=== PATIENT | female | born 1960 | race Caucasian/White ===

== ENCOUNTER 2020-06-19 14:40 | Emergency (ER) | payer SELFPAY ==
[~2020-06-19] VITALS: Ht 141 cm; Wt 68.0 kg
[2020-06-19 14:46] VITALS: BP 119/62
--- NOTE | 2020-06-19 14:50 | NUR ---
Dr. Phipps notified of pt's symptoms
--- NOTE | 2020-06-19 14:55 | NUR ---
BIB DAUGHTER C/O OF SUDDEN ONSET OF CONFUSION, NAUSEA, MUMBLING OF SPEECH AND GENERALIZED WEAKNESS X1 HR. PATIENT AOX4, BUE/BLE STRENGTH NORMAL, NO SLURRED SPEECH NOTED AT THIS TIME, NO UNILATERAL WEAKNESS NOTED AT THIS TIME. PATIENT AMBULATORY WITH STEADY GAIT, ABLE TO ANSWER QUESTIONS APPROPRIATELY. PERRL, 3MM. PATIENT DOES CO OF SLIGHT HEADACHE AND NAUSEA AT THIS TIME. VSS, DR. DENIS AWARE OF PATIENT CONDITION. PATIENT PLACED IN A GOWN, PLACED ON ARMORER TECHNICIAN. DR. DENIS BEDSIDE EVALUATING PATIENT. BED IN LOWEST POSITION, SIDE RAIL UP X1
--- NOTE | 2020-06-19 15:01 | NUR ---
Dr. Phipps evaluating pt at bedside
--- NOTE | 2020-06-19 15:05 | NUR ---
ACCOMPANIED PATIENT TO CT SCAN ON INSURANCE AGENTS SUPERVISOR.
[2020-06-19] MEDS ORDERED: ONDANSETRON 4 MG/2 ML VIAL IVP ONE (15:20)
[2020-06-19] MEDS ORDERED: MECLIZINE 25 MG TAB PO ONE ×2 (15:20→18:35)
[2020-06-19 15:56] LABS: BASOPHILS % (AUTO) 0.2 % (0.0-2.0); EOSINOPHILS % (AUTO) 0.1 % (0.0-4.0); HEMOGLOBIN 13.2 g/dL (12.0-16.0); LYMPHOCYTES # (AUTO) 3.7 K/uL (2.5-16.5); LYMPHOCYTES % (AUTO) 44.3 % (20.5-51.1); MEAN CORPUSCULAR HEMOGLOBIN 30 pg (27-31); MEAN CORPUSCULAR HGB CONC 33 g/dL (33-37); MEAN CORPUSCULAR VOLUME 90.8 fL (80-94); MONOCYTES # (AUTO) 0.9 K/uL (0.8-1.0); MONOCYTES % (AUTO) 10.3 % (1.7-9.3); NEUTROPHILS # (AUTO) 3.7 K/uL (1.8-7.7); NEUTROPHILS % (AUTO) 45.1 % (42.2-75.2); PLATELET COUNT (AUTO) 215 K/uL (140-450); RED BLOOD CELL COUNT(AUTO) 4.41 MIL/uL (4.20-5.40); RED CELL DISTRIBUTION WIDTH 13.5 % (11.6-13.7); WHITE BLOOD COUNT (AUTO) 8.3 K/uL (4.8-10.8)
[2020-06-19 16:05] LABS: PROTHROMBIN TIME 9.6 secs (10.8-13.4)
[2020-06-19 16:06] LABS: ALBUMIN 3.7 g/dL (3.4-5.0); ANION GAP 14.3 (8-16); CREATININE 0.7 mg/dL (0.6-1.3); POTASSIUM 3.3 mmol/L (3.5-5.1); TOTAL BILIRUBIN 0.4 mg/dL (0.0-1.0)
--- NOTE | 2020-06-19 17:40 | NUR ---
PATIENT AMBULATED TO RESTROOM WITH STEADY GAIT.
--- NOTE | 2020-06-19 17:47 | NUR ---
YESSENIA COVID SWAB COLLECTED AND SENT TO LAB
[2020-06-19] MEDS ORDERED: ONDANSETRON 4 MG ODT PO ONE (18:35)
[2020-06-19] MEDS ORDERED: ASPIRIN 81 MG TAB.CHEW PO ONE (19:05)
--- NOTE | 2020-06-19 19:08 | NUR ---
RECIVED REPORT FROM MARGARITA NAVARRO. CONTINUATION OF CARE.
[2020-06-19] MEDS ORDERED: ASPIRIN 81 MG TAB.CHEW ONE (19:12)
[2020-06-19] MEDS ORDERED: NACL 0.9% 1,000 ML IV ONE (19:25)
== END 2020-06-19 20:50 | disposition home or self-care (01) ==
LOC: MED 14:40
DX: R42 Dizziness and giddiness (principal); Z20.828 Contact with and (suspected) exposure to other viral communicable diseases
CPT/HCPCS: 70450; 70496; 70498; 71045; 80053; 82948; 84484; 85025; 85610; 85730; 87426; 93005; 96374; 99291; J2405; J8597